=== PATIENT | male | born 1960 | race Caucasian/White ===

== ENCOUNTER → 2016-12-26 | Day surgery (SDC) | payer MEDICARE ==
[2015-12-20 10:08] VITALS: BP 144/97
[~2016-12-26] MED LIST: IV RINGERS SOLUTION,LACTATED 1,000 ML IV ONE; PROPOFOL 20 ML IV ONE
--- NOTE | 2016-12-30 13:48 | PATHOLOGY ---
PATHOLOGY REPORT * * * * * * * * FINAL DIAGNOSIS: Colon, descending, biopsy: - Adenomatous polyps, two. (SKM:mmshelton; 12/30/2016) REPORT ELECTRONICALLY SIGNED BY: Soha Ruiz M.D. DATE/TIME: 12/30/2016 13:47 * * * * * * * * GROSS PATHOLOGY: Received in formalin labeled "Katherin Mcleod, descending colon polyp 2," are 2 segments of goode soft tissue measuring 0.7 x 0.3 x 0.4 cm in aggregate dimensions and ranging from 0.3 to 0.4 cm in maximum dimension. The specimen is submitted entirely in cassette A1. (TSD; 12/27/2016) INITIAL CPT CODE(S): A; 22326 Professional services performed [place] [address] Technical services performed by [facility] at [address] [place] [address] [address] [address]. SPECIMEN(S) RECEIVED: A.Descending colon polyp x2 CLINICAL HISTORY: Screening PATIENT: KATHERIN MCLEOD /AGE: 11 1960 (Age: 56) PATIENT #: [id number] ALT CASE #: SPECIMEN COLLECTION DATE: 12/26/2016 SPECIMEN RECEIVED DATE: 12/27/2016 [facility] - [address] [place] [address] - PHONE: [phone] * * * END OF REPORT * * *
== END | disposition home or self-care (01) ==
LOC: SURG 09:18
PROVIDERS: ATTEND Internal Medicine Gastroenterology
DX: Z09 Encounter for follow-up examination after completed treatment for conditions other than malignant neoplasm (principal); Z87.19 Personal history of other diseases of the digestive system; D12.4 Benign neoplasm of descending colon; K64.8 Other hemorrhoids; K57.30 Diverticulosis of large intestine without perforation or abscess without bleeding; M19.91 Primary osteoarthritis, unspecified site; Z88.6 Allergy status to analgesic agent; Z88.8 Allergy status to other drugs, medicaments and biological substances
CPT/HCPCS: 45385; 88305; J2704; J7120; 45380

== ENCOUNTER 2017-05-19 06:58 | Emergency (ER) | payer MEDICARE ==
[~2017-05-19] VITALS: Ht 167.6 cm; Wt 99.8 kg
[2017-05-19] MEDS ORDERED: IV NORMAL SALINE 500ML 500 ML IV ONE (07:30)
--- NOTE | 2017-05-19 07:41 | PHYS DOC ---
Past History Past Medical History: Arthritis Past Surgical History: Hip Replacement Alcohol Use: None Drug Use: None Adult General Chief Complaint Chief Complaint: GI PROBLEM HPI HPI Patient is a 57 year old male who presents with abdominal pain. The patient reports 3 hour history of upper abdominal pain greatest in the right upper quadrant, worse with eating and drinking, slightly better when lying on his side. He reports associated nausea. Denies fevers or chills, chest pain or shortness of breath, vomiting, hematemesis, diarrhea or constipation, hematochezia or melena, dysuria or hematuria. Denies previous history of similar symptoms. History of arthritis status post bilateral total hip arthroplasty, denies abdominal surgeries. Denies use of alcohol. PCP is Dr. Grigsby. Review of Systems Review of Systems Constitutional: Denies fever or chills Eyes: Denies change in visual acuity HENT: Denies nasal congestion or sore throat Respiratory: Denies cough or shortness of breath Cardiovascular: Denies chest pain or edema GI: Reports abdominal pain, nausea, denies vomiting, bloody stools or diarrhea : Denies dysuria or hematuria Musculoskeletal: Denies back pain or joint pain Integument: Denies rash or skin lesions Neurologic: Denies headache, focal weakness or sensory changes All other systems were reviewed and found to be within normal limits, except as documented in this note. Current Medications Current Medications Current Medications Medications (Trade) Dose Ordered Sig/Ariel Start Time Stop Time Status Last Admin Dose Admin Multi-Ingredient Mouthwash/Gargle (Gi Cocktail) 20 ml 1X ONCE 05/19/17 07:45 05/19/17 07:46 Ondansetron HCl (Zofran) 4 mg 1X ONCE 05/19/17 07:45 05/19/17 07:46 Sodium Chloride 500 ml @ 0 mls/hr 1X ONCE 05/19/17 07:30 05/19/17 07:32 DC Allergies Allergies Allergies Coded Allergies Type Severity Reaction Last Updated Verified oxycodone Allergy Unknown STOMACH ISSUES 12/20/15 Yes Physical Exam Physical Exam Constitutional: Obese, no acute distress, non-toxic appearance. HENT: Normocephalic, atraumatic, bilateral external ears normal, oropharynx moist, nose normal. Eyes: PERRLA, EOMI, conjunctiva normal, no discharge. Neck: supple, no stridor. Cardiovascular: RRR, no murmurs, no edema. Lungs & Thorax: LCTAB, no wheezing, no respiratory distress. Abdomen: soft, diffuse upper abdominal tenderness which is greatest in the right upper quadrant, no rebound or guarding, no masses or pulsatile masses, nondistended. Skin: Warm, dry, no erythema, no rash. Back: No CVA tenderness. Extremities: No tenderness, no edema. Neurologic: Alert and oriented X 3, no focal deficits noted. Psychologic: Affect normal, judgement normal, mood normal. Current Patient Data Vital Signs Vital Signs Date Time Temp Pulse Resp B/P (MAP) Pulse Ox O2 Delivery O2 Flow Rate FiO2 05/19/17 07:19 98.7 70 20 95 Room Air EKG EKG interpreted by me: 0741: normal sinus rhythm rate 72, no acute ST/T wave changes, normal intervals, no ectopy.[] Radiology/Procedures Radiology/Procedures PROCEDURE: ABDOMEN LTD Right upper quadrant abdominal ultrasound, 05/19/2017: History: Right upper quadrant pain The gallbladder is within normal limits in size. An echogenic focus with posterior acoustic shadowing is seen within the upper aspect of the gallbladder compatible with a gallstone. The gallbladder cote are not thickened. No pericholecystic edema is seen. The common hepatic duct measures 4 mm. The hepatic echogenicity is generally increased suggesting fatty change. No hepatic mass is evident. The pancreas was largely obscured by overlying bowel. The visualized portions of the right kidney are unremarkable. IMPRESSION: 1. Cholelithiasis. 2. Probable hepatic steatosis. DICTATED AND SIGNED BY: NATALIA LOMAX MD DATE: 05/19/17 0821 [] Course & Med Decision Making Course & Med Decision Making Pertinent Labs and Imaging studies reviewed. (See chart for details) The patient presented with abdominal pain. Vitals are stable, pain greatest in right upper quadrant. Gave GI cocktail. Obtained labs, EKG, abdominal ultrasound. Found to have cholelithiasis without cholecystitis or specific lab abnormalities. Patient improved with treatment here. He felt well enough to go home. Recommend rest, hydration, avoid greasy or fatty foods, try Pepcid and use Zofran as needed for nausea. No additional pain medication given, uses pain meds chronically on a when necessary basis for arthritis. Follow-up with Gen. surgery within the next week. Follow-up with Dr. Grigsby as needed. Return to the emergency department for high fever, severe pain, uncontrolled vomiting, any otherwise worsening condition. Discharged home in stable condition. [] Dragon Disclaimer Dragon Disclaimer This electronic medical record was generated, in whole or in part, using a voice recognition dictation system. Departure Departure: Impression: Primary Impression: Cholelithiasis Disposition: HOME, SELF-CARE Condition: STABLE Referrals: YAMINI GRIGSBY MD (PCP) MILES AREVALO MD Patient Instructions: Cholelithiasis, [id number] Additional Instructions: You were seen in the emergency department today for abdominal pain. Your ultrasound showed gallstones. You felt better here and were able to go home. Please rest, drink fluids to stay hydrated, avoid eating greasy or fatty foods, try taking Pepcid and use Zofran as needed for nausea. Follow-up with Dr. Arevalo in the general surgery clinic within the next week. Based on your symptoms today, he may recommend having your gallbladder removed. Follow-up with Dr. Grigsby for additional concerns. Return to the emergency department for high fever, severe pain, uncontrolled vomiting, any otherwise worsening condition. Scripts Ondansetron (ZOFRAN ODT) 4 Mg Tab.rapdis 1 TAB SL Q8HRS, #10 TAB Prov: KARLY RAYMOND MD 05/19/17 Famotidine (PEPCID) 20 Mg Tablet 1 TAB PO BID for 5 Days, #14 TAB 0 Refills Prov: KARLY RAYMOND MD 05/19/17 KARLY RAYMOND MD May 19, 2017 07:41
[2017-05-19] MEDS ORDERED: ONDANSETRON PF 4 MG/2 ML VIAL. IV ONE (07:45)
[2017-05-19] MEDS ORDERED: LIDO:MAALOX 1:1 20 ML SINGLE DOSE PO ONE (07:45)
--- NOTE | 2017-05-19 07:45 | EKG ---
[address] [address] Test Date: 2017-05-19 Test Time: 07:41:47 Pat Name: KATHERIN MCLEOD Department: Room: Gender: M [employer]: FRANCK : 1960 Requested By: KARLY RAYMOND Order Number: [id number] Reading MD: Hayden Newell Measurements Intervals [place] Rate: 72 P: 31 SD: 168 QRS: 3 QRSD: 76 T: 22 QT: 350 QTc: 385 Interpretive Statements SINUS RHYTHM NORMAL ECG RI6.01 No previous ECG available for comparison Electronically Signed On 05-21-2017 10:08:24 BUSINESS SYSTEMS ADMINISTRATOR by Hayden Newell
[2017-05-19 07:47] LABS: BASO % 0 % (0-3); EOS % 0 % (0-3); HEMATOCRIT 41.5 % (39.0-53.0); HEMOGLOBIN 13.9 g/dL (13.0-17.5); LYMPH # 0.9 x10^3/uL (1.0-4.8); LYMPH % 10 % (24-48); MEAN CORPUSCULAR HEMOGLOBIN 27 pg (25-35); MEAN CORPUSCULAR HGB CONC 34 g/dL (31-37); MEAN CORPUSCULAR VOLUME 82 fL (79-100); MONO # 0.6 x10^3/uL (0.0-1.1); MONO % 6 % (0-9); NEUT # 7.6 x10^3uL (1.8-7.7); NEUT % 84 % (31-73); PLATELET COUNT 271 x10^3/uL (140-400); RED BLOOD COUNT 5.08 x10^6/uL (4.30-5.70); RED CELL DISTRIBUTION WIDTH 15.3 % (11.5-14.5)
[2017-05-19 07:56] LABS: ALBUMIN 3.7 g/dL (3.4-5.0); ALBUMIN/GLOBULIN RATIO 0.9 (1.0-1.7); CALCIUM 9.3 mg/dL (8.5-10.1); CREATININE 0.8 mg/dL (0.7-1.3); GFR 99.6; POTASSIUM 4.4 mmol/L (3.5-5.1); TOTAL BILIRUBIN 0.2 mg/dL (0.2-1.0); TOTAL PROTEIN 7.6 g/dL (6.4-8.2)
[2017-05-19 08:14] LABS: BACTERIA,URINE FEW /HPF (0-FEW); BILIRUBIN,URINE NEG (NEG); CLARITY,URINE HAZY; COLOR,URINE YELLOW; GLUCOSE,URINE NEG (NEG); GRANULAR CASTS,URINE OCC /HPF; HYALINE CASTS, URINE OCC /HPF; NITRITE,URINE NEG (NEG); RBC,URINE OCC /HPF (0-2); SQUAMOUS EPITHELIAL CELL,UR OCC /LPF; UROBILINOGEN,URINE 0.2 mg/dL (0.2 mg/dL)
--- NOTE | 2017-05-19 08:26 | RAD ---
Right upper quadrant abdominal ultrasound, 05/19/2017: History: Right upper quadrant pain The gallbladder is within normal limits in size. An echogenic focus with posterior acoustic shadowing is seen within the upper aspect of the gallbladder compatible with a gallstone. The gallbladder cote are not thickened. No pericholecystic edema is seen. The common hepatic duct measures 4 mm. The hepatic echogenicity is generally increased suggesting fatty change. No hepatic mass is evident. The pancreas was largely obscured by overlying bowel. The visualized portions of the right kidney are unremarkable. IMPRESSION: 1. Cholelithiasis. 2. Probable hepatic steatosis.
[2017-05-19] MEDS ORDERED: ONDA4TAB10 SL (08:52)
[2017-05-19] MEDS ORDERED: FAMO-63 PO (08:52)
[2017-05-19 09:50] VITALS: BP 140/80
== END 2017-05-19 09:54 | disposition home or self-care (01) ==
LOC: ER 06:58
DX: K80.20 Calculus of gallbladder without cholecystitis without obstruction (principal); M19.90 Unspecified osteoarthritis, unspecified site; Z88.5 Allergy status to narcotic agent
CPT/HCPCS: 36415; 76705; 80053; 81001; 83690; 84484; 85025; 93005; 96374; 99285; J2405; J7040

== ENCOUNTER 2021-02-21 09:42 | Emergency (ER) | payer MEDICARE ==
[~2021-02-21] VITALS: Ht 167.6 cm; Wt 100.0 kg
[~2021-02-21 09:42] MED LIST changes: +FAMO-63 PO; -IV RINGERS SOLUTION,LACTATED 1,000 ML IV ONE; +ONDA4TAB10 SL; -PROPOFOL 20 ML IV ONE
--- NOTE | 2021-02-21 09:43 | PHYS DOC ---
Past History Past Medical History: Arthritis Past Surgical History: Hip Replacement Alcohol Use: None Drug Use: None General Adult HPI: HPI: Patient is a 61-year-old male who presents here with mid low back pain. He also reports bilateral right and low back pain, the midline is the worst. He has had the symptoms off and on for several weeks. Overall, he has had back pain issues since 2008. He attributes his back pain to previous total hip arthroplasties. He denies any radiation of pain. He denies lower extremity numbness, tingling, motor weakness. He denies urinary symptoms. He denies abdominal pain. He de nies any incontinence of urine or stool. He denies fever or chills. He has not seen his primary care physician for this yet. He has not taken anything for the pain. He reports that he is unable to take NSAID medicine and Tylenol "never works." Review of Systems: Review of Systems: Constitutional: Denies fever or chills HENT: Denies nasal congestion or sore throat Respiratory: Denies cough or shortness of breath Cardiovascular: Denies chest pain or edema GI: Denies abdominal pain, nausea, vomiting, bowel habit changes : Denies Branden symptoms or incontinence Musculoskeletal: Ports low back pain. Denies joint pain or swelling Integument: Denies rash Neurologic: Denies headache, focal weakness or sensory changes Psychiatric: Denies depression or anxiety Allergies: Allergies: Allergies Coded Allergies Type Severity Reaction Last Updated Verified oxycodone Allergy Unknown STOMACH ISSUES 12/20/15 Yes Physical Exam: PE: Constitutional: Well developed, well nourished, no acute distress, non-toxic appearance. [] HENT: Normocephalic, atraumatic Neck: Trachea midline, no tenderness Cardiovascular:Heart rate regular rhythm, +2 radial and +2 posterior tibial pulses bilaterally Lungs & Thorax: Bilateral breath sounds clear to auscultation [] Abdomen: Abdomen soft, nondistended, nontender to palpation, no pulsatile mass appreciated, no abdominal or flank ecchymoses Skin: Warm, dry, no erythema, no rash. [] Back: Full range of motion. No deformity. Diffuse lumbar midline and paraspinal tenderness. No palpable step-offs or deformity noted. No warmth or erythema. No CVA tenderness. Extremities: No tenderness, no cyanosis, no clubbing, ROM intact, no edema. [] Neurologic: Alert and oriented X 3, normal motor function, normal sensory function, no focal deficits noted. 5 out of 5 motor strength all 4 extremities. No evidence of foot drop. Sensation is grossly intact. Gait is slightly antalgic but steady. Speech is clear and fluent. Psychologic: Affect normal, judgement normal, mood normal. [] EKG: EKG: [] Radiology/Procedures: Radiology/Procedures: IMAGING REPORT Signed PATIENT: KATHERIN MCLEOD ACCOUNT: [id number] : 1960 LOCATION: ER AGE: 61 SEX: M EXAM STATUS: REG ER ORD. PHYSICIAN: CINDA SAUCEDO DO REASON: low back pain PROCEDURE: LUMBAR SPINE 2-3V Three-view lumbar spine series Clinical indications: Back pain. COMPARISON: CT study of the abdomen and pelvis dated September 23, 2014. FINDINGS: Mild dextroscoliosis is seen. There is mild compression deformity of the superior endplate of L3. The transverse processes are intact. No lytic process or discitis is seen. No anterolisthesis is evident. Degenerative endplate spurring is seen at L2-3 and L3-4 with mild disc space narrowing. IMPRESSION: Mild compression deformity of the superior endplate of L3 which is new from previous CT study 2014. Acuteness of the fracture may be determined with lumbar spine MRI study if clinically needed. Electronically signed by: Sundeep Rivera MD (02/21/2021 10:30 AM) [id number] DICTATED AND SIGNED BY: SUNDEEP RIVERA MD DATE: 02/21/21 1023 CC: YAMINI GRIGSBY MD; CINDA SAUCEDO DO ~MTH0 0 Heart Score: C/O Chest Pain: No Risk Factors: Risk Factors: DM, Current or recent (<one month) smoker, HTN, HLP, family history of CAD, obesity. Risk Scores: Score 0 - 3: 2.5% MACE over next 6 weeks - Discharge Home Score 4 - 6: 20.3% MACE over next 6 weeks - Admit for Clinical Observation Score 7 - 10: 72.7% MACE over next 6 weeks - Early Invasive Strategies Course & Med Decision Making: Course & Med Decision Making Pertinent Labs and Imaging studies reviewed. (See chart for details) The patient is given IM morphine, p.o. Flexeril and Lidoderm. I discussed the findings, differential diagnosis and plan of care with him. I explained that he should contact his PCP and discuss outpatient MRI. He may require formal pain management services and/or physical therapy services. He has previously had pain management services at the [facility], and he does not wish to pursue this. I told him he may inquire about what services might be more preferred based on his primary care physician recommendation. I recommend he call this week to make an appointment for follow-up. He is comfortable with the plan for discharge home. He has a nonfocal neurologic exam. No red flag signs or symptoms. No indication for emergent MRI or further invasive exams at this time. His L3 compression fracture appears to be stable, no current indication for admission to the hospital for further invasive exams at this time. Dragon Disclaimer: Dragon Disclaimer: This electronic medical record was generated, in whole or in part, using a voice recognition dictation system. Departure Departure: Impression: Primary Impression: Low back pain Qualified Codes: M54.50 - Low back pain, unspecified Additional Impression: Compression fracture of L3 vertebra Qualified Codes: S32.030A - Wedge compression fracture of third lumbar vertebra, initial encounter for closed fracture Disposition: HOME / SELF CARE / HOMELESS Condition: STABLE Referrals: YAMINI GRIGSBY MD (PCP) Patient Instructions: Back Pain, Adult, Lumbar Fracture Additional Instructions: Use the medications as directed/as needed. You may alternate ice and heat and gentle stretching. Return to the ER for acute injury or trauma, for focal weakness, paralysis, incontinence of bowel or bladder function, temperature 100.4 or higher, severe abdominal pain, or any other concerns. Please contact your primary care physician to arrange for follow-up. You will likely need an outpatient MRI. Discuss possible outpatient physical therapy and/or pain management services as well. Scripts Lidocaine/Menthol (LIDOPATCH) 1 Each Adh..patch 1 TREVA TP DAILY for pain, #10 EACH 0 Refills may remove after 12 hours Prov: SHERYLCINDA Guajardo DO 02/21/21 Cyclobenzaprine Hcl (CYCLOBENZAPRINE HCL) 10 Mg Tablet 1 TAB PO BID for muscle spasm, #14 TAB Prov: CINDA SAUCEDO DO 02/21/21 Hydrocodone Bit/Acetaminophen (HYDROCODONE-APAP 5-325 ) 1 Each Tablet 1 TAB PO PRN Q6HRS PRN for PAIN, #20 TAB 0 Refills Prov: CINDA SAUCEDO DO 02/21/21 CINDA SAUCEDO DO Feb 21, 2021 09:43
[2021-02-21] MEDS ORDERED: CYCLOBENZAPRINE 10 MG TABLET. PO ONE (10:00)
[2021-02-21] MEDS ORDERED: LIDOCAINE (700MG/PATCH) PATCH. TD ONE (10:00)
[2021-02-21] MEDS ORDERED: MORPHINE SULFATE 4 MG/ML DISP.SYRIN. IM ONE (10:00)
--- NOTE | 2021-02-21 10:32 | RAD ---
Three-view lumbar spine series Clinical indications: Back pain. COMPARISON: CT study of the abdomen and pelvis dated September 23, 2014. FINDINGS: Mild dextroscoliosis is seen. There is mild compression deformity of the superior endplate of L3. The transverse processes are intact. No lytic process or discitis is seen. No anterolisthesis is evident. Degenerative endplate spurring is seen at L2-3 and L3-4 with mild disc space narrowing. IMPRESSION: Mild compression deformity of the superior endplate of L3 which is new from previous CT s tudy 2014. Acuteness of the fracture may be determined with lumbar spine MRI study if clinically need ed. Electronically signed by: Cameron Rivera MD (02/21/2021 10:30 AM) [id number]
[2021-02-21] MEDS ORDERED: HYDROcodone/APAP 5/325MG 1 TAB TABLET PO ONE (12:00)
[2021-02-21] MEDS ORDERED: CYCL10TA19 PO (12:01)
[2021-02-21] MEDS ORDERED: LIDO1ADH TP (12:01)
[2021-02-21] MEDS ORDERED: HYDR-2155 PO (12:01)
[2021-02-21 12:15] VITALS: BP 134/75
[2021-02-21 12:54] LABS: BACTERIA,URINE 0 /HPF (0-FEW); BILIRUBIN,URINE NEG (NEG); CLARITY,URINE CLEAR; COLOR,URINE YELLOW; GLUCOSE,URINE NEG (NEG); NITRITE,URINE NEG (NEG); RBC,URINE OCC /HPF (0-2); SQUAMOUS EPITHELIAL CELL,UR FEW /LPF; UROBILINOGEN,URINE 0.2 mg/dL (0.2 mg/dL)
== END 2021-02-21 12:23 | disposition home or self-care (01) ==
LOC: ER 09:42
DX: S32.030A Wedge compression fracture of third lumbar vertebra, initial encounter for closed fracture (principal); M19.90 Unspecified osteoarthritis, unspecified site; Z88.5 Allergy status to narcotic agent; X58.XXXA Exposure to other specified factors, initial encounter; Y93.89 Activity, other specified; Y92.89 Other specified places as the place of occurrence of the external cause; Y99.8 Other external cause status
CPT/HCPCS: 72100; 81001; 96372; 99284; J2270

== ENCOUNTER 2021-02-23 15:20 | Inpatient (IN) | payer MEDICARE ==
[~2021-02-23] VITALS: Ht 167.6 cm; Wt 107.7 kg
[~2021-02-23 15:20] MED LIST changes: +CYCL10TA19 PO; +HYDR-2155 PO; +LIDO1ADH TP
--- NOTE | 2021-02-23 16:08 | PHYS DOC ---
Past History Past Medical History: Arthritis (KRYSTYNA HARTLEY APRN) Past Surgical History: No Surgical History Additional Past Surgical Histo: knee (KRYSTYNA HARTLEY APRN) Alcohol Use: None Drug Use: None (KRYSTYNA HARTLEY APRN) General Adult EDM: Chief Complaint: LOWER EXT PAIN HPI: HPI: Patient is a 61-year-old male who presents to the emergency department for left calf pain. Patient reports that he was seen in this ER last week for low back pain that radiates down his leg but the swelling just recently started. He denies any fevers, chest pain, shortness of breath, redness to the extremity, injury, prolonged immobilization. The pain is not worse with dorsiflexion. Patient reports he has a history of DVTs, he does not take any blood thinners. (KRYSTYNA HARTLEY APRN) Review of Systems: Review of Systems: 14 body systems of the review of systems have been reviewed. See HPI for pertinent positive and negative responses, otherwise all other systems are negative, nonpertinent or noncontributory (KRYSTYNA HARTLEY APRN) Allergies: Allergies: Allergies Coded Allergies Type Severity Reaction Last Updated Verified meloxicam Allergy Unknown 02/21/21 Yes oxycodone Allergy Unknown STOMACH ISSUES 12/20/15 Yes (KRYSTYNA HARTLEY APRN) Physical Exam: PE: Constitutional: Well developed, well nourished, no acute distress, non-toxic appearance. [] HENT: Normocephalic, atraumatic, bilateral external ears normal, oropharynx moist, no oral exudates, nose normal. [] Eyes: PERRL, EOMI, conjunctiva normal, no discharge. [] Neck: Normal range of motion, no stridor Cardiovascular:Heart rate regular rhythm, no murmur [] Lungs & Thorax: Bilateral breath sounds clear to auscultation [] Abdomen: Bowel sounds normal, soft, no tenderness, no masses, no pulsatile masses. [] Skin: Warm, dry, no erythema, no rash. [] Back normal range of motion Extremities: No tenderness, no cyanosis, no clubbing, ROM intact, 2+ edema noted to left calf, no edema noted to right lower extremity, negative Homans test Neurologic: Alert and oriented X 3, normal motor function, normal sensory function, no focal deficits noted. [] Psychologic: Affect normal, judgement normal, mood normal. [] (KRYSTYNA HARTLEY APRN) Current Patient Data: Labs: Laboratory Tests Test 02/23/21 18:30 White Blood Count 8.8 x10^3/uL Red Blood Count 5.23 x10^6/uL Hemoglobin 14.1 g/dL Hematocrit 43.1 % Mean Corpuscular Volume 83 fL Mean Corpuscular Hemoglobin 27 pg Mean Corpuscular Hemoglobin Concent 33 g/dL Red Cell Distribution Width 15.1 % Platelet Count 226 x10^3/uL Neutrophils (%) (Auto) 75 % Lymphocytes (%) (Auto) 13 % Monocytes (%) (Auto) 9 % Eosinophils (%) (Auto) 2 % Basophils (%) (Auto) 0 % Neutrophils # (Auto) 6.7 x10^3uL Lymphocytes # (Auto) 1.1 x10^3/uL Monocytes # (Auto) 0.8 x10^3/uL Eosinophils # (Auto) 0.2 x10^3/uL Basophils # (Auto) 0.0 x10^3/uL Sodium Level 138 mmol/L Potassium Level 4.5 mmol/L Chloride Level 102 mmol/L Carbon Dioxide Level 29 mmol/L Anion Gap 7 Blood Urea Nitrogen 5 mg/dL Creatinine 0.8 mg/dL Estimated GFR (Cockcroft-Gault) 98.3 BUN/Creatinine Ratio 6 Glucose Level 102 mg/dL Calcium Level 8.9 mg/dL Total Bilirubin 0.4 mg/dL Aspartate Amino Transf (AST/SGOT) 19 U/L Alanine Aminotransferase (ALT/SGPT) 24 U/L Alkaline Phosphatase 108 U/L Total Protein 7.4 g/dL Albumin 3.4 g/dL Albumin/Globulin Ratio 0.9 SARS-CoV-2 Antigen (Rapid) Negative Current Medications Medications (Trade) Dose Ordered Sig/Ariel Route PRN Reason Start Time Stop Time Status Last Admin Dose Admin Heparin Sodium/ Dextrose 250 ml @ 16.64 mls/ hr CONT PRN IV SEE I/O RECORD 02/23/21 18:15 02/23/21 19:01 Heparin Sodium (Porcine) (Heparin Sodium) 8,350 unit 1X ONCE IV 02/23/21 18:15 02/23/21 18:17 DC 02/23/21 19:02 Vital Signs: Vital Signs Date Time Temp Pulse Resp B/P (MAP) Pulse Ox O2 Delivery O2 Flow Rate FiO2 02/23/21 15:48 98.6 100 18 125/86 (99) 98 Room Air (KRYSTYNA HARTLEY APRN) EKG: EKG: [] (KRYSTYNA HARTLEY APRN) Radiology/Procedures: Radiology/Procedures: []REASON: leg swelling, pain, hx dvt PROCEDURE: VENOUS LOWER EXTREMITY LEFT Exam Date: 02/23/2021 5:26 PM US DPLX VENOUS EXTREMITY LOWER LT Indication: Reason: leg swelling, pain, hx dvt / Spl. Instructions: / History: . INDICATION: Lower extremity pain/swelling TECHNIQUE: Grayscale sonogram, color Doppler, and spectral Doppler waveform analysis of the lower extremity venous system was performed on the left. FINDINGS/ IMPRESSION: Extensive partially occlusive deep venous thrombosis is seen throughout the left lower extremity, including the common femoral, superficial femoral, popliteal, and calf veins. Electronically signed by: Blanquita Vaz MD (02/23/2021 5:53 PM) [facility] DICTATED AND SIGNED BY: BLANQUITA VAZ MD DATE: 02/23/211750 CC: YAMINI GRIGSBY MD; KRYSTYNA HARTLEY APRN ~MTH0 0 (KRYSTYNA HARTLEY APRN) Heart Score: C/O Chest Pain: No Risk Factors: Risk Factors: DM, Current or recent (<one month) smoker, HTN, HLP, family history of CAD, obesity. Risk Scores: Score 0 - 3: 2.5% MACE over next 6 weeks - Discharge Home Score 4 - 6: 20.3% MACE over next 6 weeks - Admit for Clinical Observation Score 7 - 10: 72.7% MACE over next 6 weeks - Early Invasive Strategies (KRYSTYNA HARTLEY APRN) Course & Med Decision Making: Course & Med Decision Making Pertinent Labs and Imaging studies reviewed. (See chart for details) [] Patient presents to the emergency department for left calf pain and swelling. He has a history of DVTs. Ultrasound was performed of his left lower calf that showed extensive partially occlusive deep venous thrombosis is seen throughout the left lower extremity, including the common femoral, superficial femoral, popliteal, and calf veins. IV was placed and blood work was obtained. I discussed these findings with Dr. Ackerman who is patient's primary care provider, he agreed to admit the patient under his services for DVT. CT angio and heparin bolus and drip ordered per Dr. Ackerman. Heparin protocol for DVT ordered. I discussed patient's results and care plan with the patient and he is agreeable at this time. ER bridge orders placed at 1821. (KRYSTYNA HARTLEY APRN) Dragon Disclaimer: Dragon Disclaimer: This electronic medical record was generated, in whole or in part, using a voice recognition dictation system. (KRYSTYNA HARTLEY APRN) Attending Co-Sign The patient was seen and interviewed as well as examined at the bedside. The chart was reviewed. The case was discussed. Agree with the plan of care. (JOSÉ LUIS TEIXEIRA DO) Departure Departure: Impression: Primary Impression: DVT (deep venous thrombosis) Qualified Codes: I82.4Y2 - Acute embolism and thrombosis of unspecified deep veins of left proximal lower extremity Disposition: ADMITTED INPATIENT Condition: STABLE Referrals: YAMINI GRIGSBY MD (PCP) KRYSTYNA HARTLEY APRN Feb 23, 2021 16:08 JOSÉ LUIS TEIXEIRA DO Feb 26, 2021 10:49
--- NOTE | 2021-02-23 17:55 | RAD ---
Exam Date: 02/23/2021 5:26 PM US DPLX VENOUS EXTREMITY LOWER LT Indication: Reason: leg swelling, pain, hx dvt / Spl. Instructions: / History: . INDICATION: Lower extremity pain/swelling TECHNIQUE: Grayscale sonogram, color Doppler, and spectral Doppler waveform analysis of the lower ex tremity venous system was performed on the left. FINDINGS/ IMPRESSION: Extensive partially occlusive deep venous thrombosis is seen throughout the left lower extremity, inc luding the common femoral, superficial femoral, popliteal, and calf veins. Electronically signed by: Nate Vaz MD (02/23/2021 5:53 PM) [facility]
[2021-02-23] MEDS ORDERED: HEPARIN for IV BOLUS 10,000 UNIT/10 ML VIAL. IV ONE (18:15)
[2021-02-23] MEDS ORDERED: CONTRAST GIVEN. MC PRN (18:30)
[2021-02-23] MEDS ORDERED: HEPARIN for IV BOLUS 10,000 UNIT/10 ML VIAL. IV PRN ×3 (18:30)
[2021-02-23] MEDS ORDERED: IOHEXOL 350 MG/ML 100 ML VIAL. IV ONE (18:30)
[2021-02-23] MEDS ORDERED: ACETAMINOPHEN 325 MG TABLET PO ONE (18:45)
[2021-02-23 18:59] LABS: BASO % 0 % (0-3); EOS # 0.2 x10^3/uL (0.0-0.7); EOS % 2 % (0-3); HEMATOCRIT 43.1 % (39.0-53.0); HEMOGLOBIN 14.1 g/dL (13.0-17.5); LYMPH # 1.1 x10^3/uL (1.0-4.8); LYMPH % 13 % (24-48); MEAN CORPUSCULAR HEMOGLOBIN 27 pg (25-35); MEAN CORPUSCULAR HGB CONC 33 g/dL (31-37); MEAN CORPUSCULAR VOLUME 83 fL (79-100); MONO # 0.8 x10^3/uL (0.0-1.1); MONO % 9 % (0-9); NEUT # 6.7 x10^3uL (1.8-7.7); NEUT % 75 % (31-73); PLATELET COUNT 226 x10^3/uL (140-400); RED BLOOD COUNT 5.23 x10^6/uL (4.30-5.70); RED CELL DISTRIBUTION WIDTH 15.1 % (11.5-14.5); WHITE BLOOD COUNT 8.8 x10^3/uL (4.0-11.0)
[2021-02-23] MEDS: HEPARIN 25,000UTS/250ML PREMIX 250 ML IV PRN (19:01)
[2021-02-23 19:07] LABS: CALCIUM 8.9 mg/dL (8.5-10.1); CREATININE 0.8 mg/dL (0.7-1.3); GFR 98.3; POTASSIUM 4.5 mmol/L (3.5-5.1)
[2021-02-23 19:15] LABS: ALBUMIN 3.4 g/dL (3.4-5.0); ALBUMIN/GLOBULIN RATIO 0.9 (1.0-1.7); TOTAL BILIRUBIN 0.4 mg/dL (0.2-1.0); TOTAL PROTEIN 7.4 g/dL (6.4-8.2)
--- NOTE | 2021-02-23 19:43 | NUR ---
The patient, KATHERIN MCLEOD, 61 y/o, M admitted by YAMINI GRIGSBY MD, was given written information regarding hospital policies, unit procedures and contact persons. Valuables were checked and left with the patient.
[2021-02-23 20:12] VITALS: BP 127/75
[2021-02-23] MEDS ORDERED: LISI10TA16 PO (22:34)
[2021-02-23 23:33] VITALS: BP 114/71
[2021-02-23] MEDS: CYCLOBENZAPRINE 10 MG TABLET. PO SCH (23:44)
[2021-02-24] MEDS: HYDROcodone/APAP 5/325MG 1 TAB TABLET PO PRN (02:04)
[2021-02-24 06:43] VITALS: BP 116/73
[2021-02-24] MEDS: CYCLOBENZAPRINE 10 MG TABLET. PO SCH ×2 (07:40→19:43)
[2021-02-24] MEDS: LISINOPRIL 10 MG TABLET PO SCH (07:40)
[2021-02-24 09:22] LABS: BASO # 0.1 x10^3/uL (0.0-0.2); BASO % 1 % (0-3); EOS # 0.3 x10^3/uL (0.0-0.7); EOS % 4 % (0-3); HEMATOCRIT 42.5 % (39.0-53.0); HEMOGLOBIN 13.5 g/dL (13.0-17.5); LYMPH # 0.9 x10^3/uL (1.0-4.8); LYMPH % 14 % (24-48); MEAN CORPUSCULAR HEMOGLOBIN 27 pg (25-35); MEAN CORPUSCULAR HGB CONC 32 g/dL (31-37); MEAN CORPUSCULAR VOLUME 84 fL (79-100); MONO # 0.6 x10^3/uL (0.0-1.1); MONO % 9 % (0-9); NEUT # 4.4 x10^3uL (1.8-7.7); NEUT % 72 % (31-73); PLATELET COUNT 225 x10^3/uL (140-400); RED BLOOD COUNT 5.08 x10^6/uL (4.30-5.70); RED CELL DISTRIBUTION WIDTH 14.6 % (11.5-14.5); WHITE BLOOD COUNT 6.1 x10^3/uL (4.0-11.0)
[2021-02-24 09:38] LABS: ALBUMIN 3.1 g/dL (3.4-5.0); ALBUMIN/GLOBULIN RATIO 0.8 (1.0-1.7); CALCIUM 8.7 mg/dL (8.5-10.1); CREATININE 0.8 mg/dL (0.7-1.3); GFR 98.3; POTASSIUM 3.9 mmol/L (3.5-5.1); TOTAL BILIRUBIN 0.6 mg/dL (0.2-1.0); TOTAL PROTEIN 6.9 g/dL (6.4-8.2)
[2021-02-24 11:00] VITALS: BP 115/71
--- NOTE | 2021-02-24 11:53 | RAD ---
EXAM: CT angiography of the chest with intravenous contrast. HISTORY: DVT. TECHNIQUE: Computed tomographic images of the chest were obtained following the administration of int ravenous contrast according to angiography protocol. Multiplanar reformatting was performed and three dimensional maximum intensity projection images were obtained. *One or more of the following individualized dose reduction techniques were utilized for this examina tion: 1. Automated exposure control. 2. Adjustment of the mA and/or kV according to patient size. 3. Use of iterative reconstruction technique. COMPARISON: None. FINDINGS: There is no convincing pulmonary embolism. Evaluation of the distal pulmonary arteries is l imited due to respiratory motion. There is no aortic aneurysm or dissection. There is a heterogeneous thyroid with suspected right thyroid nodule measuring 1.1 cm. No pathologically enlarged lymph node is seen. There is no pleural effusion. There is no pneumothorax. There is bilateral posterior dependent and basilar atelectasis. There is no infiltrate. There is no s uspicious pulmonary nodule. There is lingular atelectasis or scarring. There is hepatic steatosis. Th e gallbladder is absent. There is no acute finding involving the upper abdomen. There are degenerativ e changes involving the spine. There is no acute or suspicious osseous finding. IMPRESSION: 1. No convincing pulmonary embolism or alternative acute thoracic finding. 2. Suspected right thyroid nodule. This can be better assessed with a nonemergent thyroid sonogram. Electronically signed by: Magdalena Donovan MD (02/24/2021 11:51 AM) [id number]
[2021-02-24] MEDS: HEPARIN 25,000UTS/250ML PREMIX 250 ML IV PRN (14:58)
[2021-02-24 15:03] VITALS: BP 112/73
[2021-02-24 19:09] VITALS: BP 113/71
--- NOTE | 2021-02-24 19:54 | HP ---
DATE OF SERVICE: 02/24/2021 ADMIT DATE: 02/23/2021 HISTORY OF PRESENT ILLNESS: A 61-year-old came in with severe left calf pain, marked swelling. The patient had a significant DVT extending to a good part of the leg itself. The patient was noted to have severe pain. The patient had a CTA that showed no convincing pulmonary emboli, although it does not sound very convincing that he did not have one either. The patient was admitted for further evaluation, IV heparinization because of the extensiveness of this clot in his left leg. He has extensive partially occlusive deep venous thrombosis throughout the left lower extremity including the common femoral and superficial femoral, popliteal and calf veins. He was admitted for IV heparinization and then turned over to oral anticoagulation. PAST MEDICAL HISTORY: Cardiac disorders, hypertension, orthopedic surgery, bilateral LINDEN, right meniscus tear repair, compression fracture, diagnosis of blood disorders. Clotting problems, clots in 1993 of the right leg. ALLERGIES: MELOXICAM AND OXYCODONE. SOCIAL HISTORY: The patient denies smoking, alcohol or drug use. FAMILY HISTORY: Unremarkable. REVIEW OF SYSTEMS: The patient denies any headaches, visual change, blurred vision, double vision. Denies any melena, hematochezia or hematemesis and neurologically stable. PHYSICAL EXAMINATION: GENERAL: This is a pleasant white male, moderate amount of distress. VITAL SIGNS: Blood pressure 112/73, respiration 18, pulse 73, afebrile, 87% on room air (NC), needs to be on oxygen there. HEENT: The patient's head was atraumatic, normocephalic. Eyes: PERRLA without jaundice. The mouth and throat were normal. NECK: Supple. No thyromegaly. LUNGS: Diminished throughout, but clear. CARDIOVASCULAR: Regular sinus rhythm. ABDOMEN: Soft, nontender, no rebound or guarding. Positive bowel sounds, no hepatosplenomegaly noted. EXTREMITIES: No clubbing, cyanosis or edema except for the left lower leg, marked swelling to the leg itself from above the ankle up into the thigh itself quite extensive in nature. He is on protocol for heparinization and he will be placed on supplemental oxygen for his hypoxemia. IMPRESSION: Deep vein thrombosis of the left leg. PLAN: Continue to monitor carefully. Make further evaluation on him as indicated for any release of the clot into his lungs. MINISTERIO/ONDINARODERICK DR: Lizandro TID: [id number]
[2021-02-24] MEDS ORDERED: MAGNESIUM CITRATE 296 ML SOLUTION. PO ONE (20:00)
[2021-02-24 22:32] VITALS: BP 109/70
[2021-02-25] MEDS: HYDROcodone/APAP 5/325MG 1 TAB TABLET PO PRN ×2 (01:40→21:40)
[2021-02-25] MEDS: HEPARIN 25,000UTS/250ML PREMIX 250 ML IV PRN ×2 (04:05→23:26)
[2021-02-25 05:20] VITALS: BP 105/67
[2021-02-25] MEDS: CYCLOBENZAPRINE 10 MG TABLET. PO SCH ×2 (07:49→21:39)
[2021-02-25] MEDS: LISINOPRIL 10 MG TABLET PO SCH (07:49)
[2021-02-25 10:44] VITALS: BP 104/68
[2021-02-25] MEDS ORDERED: APIXABAN 5 MG TABLET. PO SCH (13:00)
[2021-02-25] MEDS ORDERED: HEPARIN for IV BOLUS 10,000 UNIT/10 ML VIAL. IV PRN ×3 (14:15)
[2021-02-25] MEDS ORDERED: WARFARIN 7.5 MG TABLET. PO ONE (16:00)
--- NOTE | 2021-02-25 16:01 | NUR ---
Pharmacy Warfarin Dosing Note S:Pharmacy consulted to assist with anticoagulation therapy started with target INR: 2 -3 O:KATHERIN MCLEOD is a 61 year old M with DVT/PE LABS: Last INR: 1 Last HGB: 13.5 Last HCT: 42.5 Last PLT: 225 Last dose of NONE given on at Previous Regimen: Vitamin K given: Drug Interaction Changes: None Ongoing Drug Interactions: A:INR Below desired Range. Target Range for this patient is: 2 -3 P: Warfarin dose: 7.5 mg Today at 1600 Bridge Therapy: Heparin Therapeutic CONTINUOUS TITRATION Next INR due 02/26/21 @0600 Pharmacy anticoagulation service will continue to follow. CRISELDA BULL [facility], 02/25/21 [id number]
[2021-02-25 16:12] VITALS: BP 122/74
[2021-02-25 19:53] VITALS: BP 102/67
--- NOTE | 2021-02-25 20:56 | PN ---
SUBJECTIVE: A 61-year-old gentleman in with severe DVT of his left leg, quite substantial. The patient has been placed on heparin since the clot went up into the thigh itself. The patient first was going to start on Eliquis and denied wanting to go on Coumadin, so we will go on warfarin type protocol to adjust him over to the Coumadin, given options of both. OBJECTIVE: VITAL SIGNS: Blood pressure 122/74, respirations 18, pulse 88, afebrile, 94 on room air. GENERAL: The patient is alert and oriented. LUNGS: Diminished, but clear. CARDIOVASCULAR: Regular sinus rhythm. ABDOMEN: Soft, diffuse tenderness. No rebound or guarding. Positive bowel sounds. No hepatosplenomegaly noted. EXTREMITIES: Except for the left lower leg, upper thigh is markedly swollen, although improved. IMPRESSION: Severe deep vein thrombosis extending through the entire left leg. PLAN: He will be started on warfarin 10 mg daily. Continue to monitor on a protime, keep him on his heparin until we can switch him over completely to the warfarin and make daily protime adjustments. ODALYS DR: Lizandro TID: [id number]
[2021-02-25 23:06] VITALS: BP 109/62
[2021-02-26 05:49] VITALS: BP 107/72
--- NOTE | 2021-02-26 08:36 | NUR ---
Pharmacy Warfarin Dosing Note S:Pharmacy consulted to assist with anticoagulation therapy started with target INR: 2 -3 O:KATHERIN MCLEOD is a 61 year old M with DVT/PE LABS: Last INR: 1.1 Last HGB: 13.5 Last HCT: 42.5 Last PLT: 225 Last dose of 7.5 mg given on 02/25/21 at 1633 Vitamin K given: N Drug Interaction Changes: None A:INR Below desired Range, will give additional 7.5mg today and continue monitoring appropriateness of heparin drip. Target Range for this patient is: 2 -3. P: Warfarin dose: 7.5 mg Today at 1600 Bridge Therapy: Heparin Therapeutic CONTINUOUS TITRATION Next INR due 02/27 Pharmacy anticoagulation service will continue to follow. KRISTOFER BOLAND, 02/26/21 [id number]
[2021-02-26] MEDS: CYCLOBENZAPRINE 10 MG TABLET. PO SCH ×2 (09:00→20:50)
[2021-02-26] MEDS: LISINOPRIL 10 MG TABLET PO SCH (09:00)
[2021-02-26 11:17] VITALS: BP 120/75
[2021-02-26] MEDS ORDERED: APIX5TAB3 PO (13:51)
[2021-02-26 15:54] VITALS: BP 118/74
[2021-02-26] MEDS ORDERED: WARFARIN 7.5 MG TABLET. PO ONE (16:00)
[2021-02-26] MEDS: HEPARIN 25,000UTS/250ML PREMIX 250 ML IV PRN (18:24)
[2021-02-26 19:00] VITALS: BP 129/75
[2021-02-26] MEDS ORDERED: DOCUSATE SODIUM 100 MG CAPSULE PO PRN (21:00)
--- NOTE | 2021-02-26 22:14 | PN ---
DATE: 02/26/2021 SUBJECTIVE: A 61-year-old male with history of severe left leg DVT extending up into the thigh. OBJECTIVE: VITAL SIGNS: Blood pressure 118/74, respirations 18, pulse 86, afebrile. GENERAL: The patient did not go on Eliquis, did not have a good experience with that before, so he is on oral warfarin using protocol, so he is on heparin as well as the warfarin simultaneously. His INR is still 1.1. LUNGS: Clear. CARDIOVASCULAR: Stable. ABDOMEN: Soft, nontender. EXTREMITIES: Left leg still swollen, but not as much as it has been. We will continue to monitor him accordingly, make further evaluation on him as indicated per those results. IMPRESSION: Severe and extensive deep venous thrombosis of the left leg. Previous history of a deep venous thrombosis of the left leg. We will go ahead and continue on warfarin, get him into the therapeutic range of the heparin and get him discharged home as soon as possible. SAMIRA DR: Lizandro TID: [id number]
[2021-02-26 23:48] VITALS: BP 116/70
[2021-02-27 05:37] VITALS: BP 116/72
[2021-02-27] MEDS: CYCLOBENZAPRINE 10 MG TABLET. PO SCH ×2 (09:00→21:45)
[2021-02-27] MEDS: HYDROcodone/APAP 5/325MG 1 TAB TABLET PO PRN (09:17)
[2021-02-27] MEDS: LISINOPRIL 10 MG TABLET PO SCH (09:18)
[2021-02-27 11:00] VITALS: BP 112/73
[2021-02-27 15:00] VITALS: BP 121/70
[2021-02-27] MEDS: HEPARIN 25,000UTS/250ML PREMIX 250 ML IV PRN (15:17)
--- NOTE | 2021-02-27 17:27 | NUR ---
Pharmacy Warfarin Dosing Note S:Pharmacy consulted to assist with anticoagulation therapy started with target INR: 2 -3 O:KATHERIN MCLEOD is a 61 year old M with DVT/PE LABS: Last INR: 1.5 Last HGB: 13.5 Last HCT: 42.5 Last PLT: 225 Last dose of 7.5 mg given on 02/26/21 at 1600 Vitamin K given: No Drug Interaction Changes: None A/P: INR subtherapeutic at 1.5. [facility] to [facility] DOAC. Holding today's dose to simplify transition to DOAC, pt is fully anticoagulated on heparin. Bridge Therapy: Heparin Therapeutic CONTINUOUS TITRATION Next INR, CBC due 02/28 Pharmacy anticoagulation service will continue to follow. KRISTOFER BOLAND, 02/27/21 [id number]
[2021-02-27 20:07] VITALS: BP 149/85
[2021-02-27 23:51] VITALS: BP 133/81
--- NOTE | 2021-02-28 00:44 | PN ---
DATE: 02/27/2021 SUBJECTIVE: A 61-year-old gentleman in with a significant clot to his left lower leg. He is being converted over to warfarin from heparin. His INR has gradually pumped up. It is up to 1.5. We will continue hopefully to get this into the therapeutic range and then have him ready for discharge. Does not want to take the expensive Eliquis. IMPRESSION: Deep vein thrombosis of the left leg. OBJECTIVE: VITAL SIGNS: Blood pressure 120/70, respiratory rate 20, pulse 86, afebrile. This is a recurrent event, needs to be monitored carefully. MINISTERIO/RAFAEL DR: MINISTERIO/shyam TID: [id number]
[2021-02-28 06:12] VITALS: BP 115/70
[2021-02-28 06:19] LABS: BASO # 0.1 x10^3/uL (0.0-0.2); BASO % 1 % (0-3); EOS # 0.4 x10^3/uL (0.0-0.7); EOS % 5 % (0-3); HEMATOCRIT 39.5 % (39.0-53.0); HEMOGLOBIN 12.8 g/dL (13.0-17.5); LYMPH # 1.4 x10^3/uL (1.0-4.8); LYMPH % 21 % (24-48); MEAN CORPUSCULAR HEMOGLOBIN 27 pg (25-35); MEAN CORPUSCULAR HGB CONC 32 g/dL (31-37); MEAN CORPUSCULAR VOLUME 83 fL (79-100); MONO # 0.6 x10^3/uL (0.0-1.1); MONO % 8 % (0-9); NEUT # 4.5 x10^3uL (1.8-7.7); NEUT % 65 % (31-73); PLATELET COUNT 256 x10^3/uL (140-400); RED BLOOD COUNT 4.77 x10^6/uL (4.30-5.70); RED CELL DISTRIBUTION WIDTH 14.8 % (11.5-14.5); WHITE BLOOD COUNT 6.8 x10^3/uL (4.0-11.0)
[2021-02-28] MEDS: CYCLOBENZAPRINE 10 MG TABLET. PO SCH (09:29)
[2021-02-28] MEDS: LISINOPRIL 10 MG TABLET PO SCH (09:30)
[2021-02-28 10:23] VITALS: BP 117/76
[2021-02-28] MEDS ORDERED: WARF-31 PO (10:56)
--- NOTE | 2021-02-28 10:58 | DISCH ---
DISCHARGE INSTRUCTIONS-DC Warfarin Follow-Up Warfarin Follow UP: to fu with the [place] [facility] YAMINI GRIGSBY MD Feb 28, 2021 10:57
--- NOTE | 2021-02-28 13:06 | NUR ---
PATIENT IS DISCHARGED HOME, HOME MEDICATIONS RETURNED TO THE PATIENT BACK FROM THE PHARMACY. DISCHARGED INSTRUCTIONS AND PRESCRIBED MEDS AND LAB ORDERS DISCUSSED, PATIENT VERBALIZED UNDERSTANDING, PATIENT LEFT UNIT VIA W/C ACCOMP BY THIS RN. PATIENT TAKEN HOME BY FAMILY VIA PERSONAL VEHICLE.
[2021-03-04] MEDS ORDERED: APIXABAN 5 MG TABLET. PO SCH (09:00)
--- NOTE | 2021-03-07 11:37 | DS ---
DATE OF DISCHARGE: 02/28/2021 HOSPITAL COURSE: A 61-year-old gentleman came in with severe left leg pain, was noted to have a left lower leg extensive blood clot extending throughout the entire legs. His CTA was basically unremarkable; however, the patient did note that this was a reoccurring problem. As a result, because of the severity and the length of this clot, which was a high risk for breaking off and going to the lungs, the patient was placed on IV heparin. There was some confusion whether or not it started on Eliquis or not because of the [place] formulary, anyway he had no convincing pulmonary embolus; however, there was a suspected right thyroid nodule. The patient was finally placed on warfarin and adjusted to a therapeutic range and finally INR was brought up. He will be checked up as an outpatient. Given specific instructions on his followup and required needs to get the protime done on a regular basis. His SARS was negative. IMPRESSION: Extensive deep vein thrombosis of the left leg extending into the left femoral vein, slight anemia, hyperglycemia. Continue to monitor the patient accordingly, make further evaluation on him as indicated per those situations as indicated. He will stay on a warfarin type diet. He is going to follow up, I believe with the [place] war[facility] clinic and make further evaluation there. KENNETH DR: Lizandro TID: [id number]
== END 2021-02-28 13:10 | disposition home or self-care (01) | DRG 301 ==
LOC: ER 15:20 → 1 SOUTH 18:16
PROVIDERS: ADMIT Family Medicine; ATTEND Family Medicine
DX: I82.412 Acute embolism and thrombosis of left femoral vein (principal); I10 Essential (primary) hypertension; Z79.01 Long term (current) use of anticoagulants; Z86.718 Personal history of other venous thrombosis and embolism; M19.90 Unspecified osteoarthritis, unspecified site; Z20.822 Contact with and (suspected) exposure to COVID-19; Z88.8 Allergy status to other drugs, medicaments and biological substances; I82.432 Acute embolism and thrombosis of left popliteal vein; D64.9 Anemia, unspecified; R73.9 Hyperglycemia, unspecified
CPT/HCPCS: 36415; 71275; 72100; 80053; 81001; 85025; 85610; 85730; 87426; 93971; 96374; J1644; U0003; 99285-25